=== PATIENT | male | born 1965 | race Caucasian/White ===

== ENCOUNTER 2018-09-22 12:51 | Emergency (ER) | payer BC ==
[2018-09-22 12:54] VITALS: BMI 38.0
[2018-09-22 13:01] VITALS: TEMP 98.7
[2018-09-22] MEDS: Sodium Chloride 0.9% 1,000 ML IV ONE ×3 (13:30→16:41)
[2018-09-22 13:50] LABS: BASO # 0.1 K/uL (0.0-0.2); BASO % 0.8 % (0.0-2.0); EOS # 0.1 K/uL (0.0-0.7); EOS % 0.9 % (0.0-4.0); LYMPH # 2.3 K/uL (1.0-4.3); LYMPH % 24.4 % (20.0-40.0); MEAN CELL VOLUME 86.5 fL (80.0-94.0); MEAN CORPUSCULAR HGB CONC 32.4 g/dL (33.0-37.0); MONO # 0.8 K/uL (0.0-0.8); MONO % 8.7 % (0.0-10.0); NEUT # 6.1 K/uL (1.8-7.0); NEUT % 65.2 % (50.0-75.0); NRBC % 0.1 % (0.0-2.0); RBC 5.02 Mil/uL (4.40-5.90); RED CELL DISTRIBUTION WIDTH 14.1 % (11.5-14.5); WHITE BLOOD COUNT 9.3 K/uL (4.8-10.8)
[2018-09-22 13:51] LABS: VENOUS BLOOD GAS BASE EXCESS -4.4 mmol/L (0.0-2.0); VENOUS BLOOD GAS PCO2 35 mmHg (40-60); VENOUS BLOOD GAS PO2 31 mm/Hg (30-55); VENOUS BLOOD PH 7.37 (7.32-7.43)
[2018-09-22 13:55] LABS: SQUAMOUS EPITHIAL < 1 /hpf (0-5); URINE BACTERIA OCC (<OCC); URINE BILIRUBIN NEGATIVE (NEGATIVE); URINE BLOOD 1+ (NEGATIVE); URINE CLARITY SLHAZY (Clear); URINE COLOR Yellow (YELLOW); URINE GLUCOSE (UA) 3+ mg/dL (Normal); URINE LEUKOCYTE ESTERASE 3+ Leu/uL (Negative); URINE PROTEIN 3+ mg/dL (NEGATIVE); URINE UROBILINOGEN NORMAL mg/dL (0.2-1.0)
[2018-09-22 14:04] LABS: ALB/GLOB RATIO 1.1 (1.0-2.1); ALBUMIN 4.3 g/dL (3.5-5.0); CALCIUM 8.9 mg/dl (8.6-10.4)
--- NOTE | 2018-09-22 14:14 | C.PDOC ---
History Of Present Illness 53 years old male sent to ED by his PMD (Dr. Hill) for evaluation of high blood sugar (BSL 570 at office). Patient reports being complaint with his multiple diabetes medications; however, he admits to recently dietary indiscreti on. He states in the last 2 weeks he has been drinking a lot of soda and eating increased carbs. Patient complains of polyuria and penile itching. He states he saw PMD today and was diagnosed with fungal infection, was prescribed antifungal cream. Patient denies chest pain, SOB, abdominal pain, n ausea/vomiting/diarrhea, fever, dysuria. Time Seen by Provider: 09/22/18 13:11 Chief Complaint (Nursing): High Blood Sugar History Per: Patient History/Exam Limitations: no limitations Current Symptoms Are (Timing): Still Present Severity: Mild Current Diabetic Medications: Insulin Causative (Exacerbating) Factor(s): Recent Change In Diet Recent travel outside of the [place]: No Past Medical History Reviewed: Historical Data, Nursing Documentation, Vital Signs Vital Signs: Last Vital Signs Temp 98.7 F 09/22/18 12:55 Pulse 105 H 09/22/18 12:55 Resp 20 09/22/18 12:55 BP 132/83 09/22/18 12:55 Pulse Ox 95 09/22/18 12:55 - Medical History PMH: Diabetes, HTN (not complaint with meds), Hypercholesterolemia, Chronic Kidney Disease - [facility] APPLICATION OF SPLINT (11/15/14) Family History: States: No Known Family Hx - Social History Hx Tobacco Use: No Hx Alcohol Use: No Hx Substance Use: No - Immunization History Hx Tetanus Toxoid Vaccination: No Hx Influenza Vaccination: No Hx Pneumococcal Vaccination: No Review Of Systems Constitutional: Negative for: Fever, Chills Cardiovascular: Negative for: Chest Pain, Palpitations Respiratory: Negative for: Cough, Shortness of Breath Gastrointestinal: Negative for: Nausea, Vomiting, Abdominal Pain, Diarrhea Genitourinary: Positive for: Other (Penile itching and polyuria ). Negative for: Dysuria, Hematuria Skin: Negative for: Rash Neurological: Negative for: Headache Physical Exam - Physical Exam Appears: Well, Non-toxic, No Acute Distress, Other (Morbidly obese ) Skin: Normal Color, Warm, Dry Eye(s): bilateral: Normal Inspection Oral Mucosa: Moist Neck: Supple Cardiovascular: Rhythm Regular (Tachycardic ) Respiratory: Normal Breath Sounds, No Rales, No Rhonchi, No Wheezing Gastrointestinal/Abdominal: Normal Exam, Bowel Sounds, Soft, No Tenderness Extremity: Normal ROM Extremity: Bilateral: Atraumatic, Normal Color And Temperature, Normal ROM Neurological/Psych: Oriented x3 Gait: Steady ED Course And Treatment - Laboratory Results Result Diagrams: 09/22/18 13:37 09/22/18 13:37 O2 Sat by Pulse Oximetry: 95 (RA) Pulse Ox Interpretation: Normal Progress Note: Blood work, UA ordered and reviewed. Patient given IV NS bolus x 3, IV insulin. Reevaluation Time: 16:40 Reassessment Condition: Improved (On reassessment, patient is resting comfortably, has no current symptoms. Repeat accucheck is 291. Blood work neg for anion gap or acidosis, and vitals have improved. Patient instructed to follow up with PMD in 1-2 days, and he understands he should return to ED if symptoms worsen/return.) Critical Care Time - Critical Care Note Total Time (in mins): 40 Documented critical care: time excludes all time spent performing seperately billable procedures. Disposition Counseled Patient/Family Regarding: Studies Performed, Diagnosis, Need For Followup - Disposition Referrals: Rashaad Hill DO [[facility]] - Disposition: HOME/ ROUTINE Disposition Time: 16:40 Condition: STABLE Additional Instructions: FOLLOW UP WITH YOUR DOCTOR IN 1-2 DAYS STICK TO DIABETIC DIET RETURN TO ER IF SYMPTOMS WORSEN Instructions: Diabetes Diet , Hyperglycemia, Adult (DC), Diabetes and Diet Forms: [facility] (Azerbaijani), Work Excuse Print Language: AMHARIC - Clinical Impression Clinical Impression: Hyperglycemia, Dietary indiscretion - Scribe Statement The provider has reviewed the documentation as recorded by the Scribclary Hankins All medical record entries made by the Scribe were at my direction and personally dictated by me. I have reviewed the chart and agree that the record accurately reflects my personal performance of the history, physical exam, medical decision making, and the department course for this patient. I have also personally directed, reviewed, and agree with the discharge instructions and disposition.
[2018-09-22] MEDS ORDERED: (Novolin R) Insulin Human Regular 100 units/ml vial ONE (14:23)
[2018-09-22] MEDS ORDERED: Sodium Chloride 0.9% 1,000 ML ONE (14:23)
[2018-09-22] MEDS: (Novolin R) Insulin Human Regular 100 units/ml vial IVP ONE (14:30)
[2018-09-22 15:43] VITALS: PULSE 92; RESP 16
[2018-09-22 16:33] VITALS: BP 103/64
[2018-09-22 16:39] VITALS: O2SAT 95
== END 2018-09-22 16:56 | disposition home or self-care (01) ==
LOC: C.ER 12:51
DX: E11.65 Type 2 diabetes mellitus with hyperglycemia (principal); E78.00 Pure hypercholesterolemia, unspecified; I12.9 Hypertensive chronic kidney disease with stage 1 through stage 4 chronic kidney disease, or unspecified chronic kidney disease; N18.9 Chronic kidney disease, unspecified; Z79.4 Long term (current) use of insulin
CPT/HCPCS: 80053; 81001; 82009; 82803; 82948; 83930; 85025; 96361; 96374; 99285; J7030